=== PATIENT | male | born 1985 | race Caucasian/White ===

== ENCOUNTER 2024-03-26 12:30 | Emergency (ER) | payer BC ==
[~2024-03-26] VITALS: Ht 182.9 cm; Wt 97.5 kg
[2024-03-26 12:36] VITALS: BP_SYST 122; PULSE 87; RESP 18; TEMP 97.6; O2SAT 97
== END 2024-03-26 13:20 | disposition left against medical advice (07) ==
LOC: SED 12:30
DX: F41.9 Anxiety disorder, unspecified (principal); Z53.21 Procedure and treatment not carried out due to patient leaving prior to being seen by health care provider